=== PATIENT | male | born 1985 | race Caucasian/White ===

== ENCOUNTER 2019-12-03 11:56 | Emergency (ER) | payer OTHER ==
[~2019-12-03] VITALS: Ht 175.3 cm; Wt 72.6 kg
[2019-12-03 12:04] VITALS: BP 136/94
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
[2019-12-03] MEDS ORDERED: KETOROLAC 30 MG/ML VIAL IM ONE (12:55)
--- NOTE | 2019-12-03 13:02 | NUR ---
PT TAKEN TO RAD VIA WHEELCHAIR
[2019-12-03 13:20] LABS: BASOPHILS % (AUTO) 0.4 % (0.0-2.0); EOSINOPHILS % (AUTO) 0.4 % (0.0-4.0); HEMATOCRIT 47.8 % (36-52); HEMOGLOBIN 16.1 g/dL (12.0-18.0); LYMPHOCYTES # (AUTO) 0.9 K/uL (2.0-11.5); MEAN CORPUSCULAR HEMOGLOBIN 32 pg (27-31); MEAN CORPUSCULAR HGB CONC 34 g/dL (33-37); MEAN CORPUSCULAR VOLUME 95.2 fL (80-94); MONOCYTES # (AUTO) 0.7 K/uL (0.8-1.0); MONOCYTES % (AUTO) 6.1 % (1.7-9.3); NEUTROPHILS # (AUTO) 9.9 K/uL (1.8-7.7); NEUTROPHILS % (AUTO) 85.1 % (42.2-75.2); PLATELET COUNT (AUTO) 234 K/uL (140-450); RED BLOOD CELL COUNT(AUTO) 5.02 MIL/uL (4.20-6.10); RED CELL DISTRIBUTION WIDTH 13.8 % (11.6-13.7); WHITE BLOOD COUNT (AUTO) 11.6 K/uL (4.8-10.8)
[2019-12-03 13:34] LABS: PROTHROMBIN TIME 9.6 secs (10.8-13.4)
[2019-12-03 13:37] LABS: ANION GAP 10.7 (8-16); CARBON DIOXIDE 30.8 mmol/L (21-32); CREATININE 0.9 mg/dL (0.6-1.3); POTASSIUM 3.5 mmol/L (3.5-5.1); TOTAL BILIRUBIN 0.5 mg/dL (0.0-1.0)
--- NOTE | 2019-12-03 13:51 | NUR ---
PT TAKEN TO CT VIA ROBIN
[2019-12-03 14:53] VITALS: BP 132/88
== END 2019-12-03 14:53 | disposition home or self-care (01) ==
LOC: MED 11:56
DX: S70.01XA Contusion of right hip, initial encounter (principal); R10.10 Upper abdominal pain, unspecified; V89.2XXA Person injured in unspecified motor-vehicle accident, traffic, initial encounter; Y93.89 Activity, other specified; Y92.89 Other specified places as the place of occurrence of the external cause; Y99.8 Other external cause status
CPT/HCPCS: 36415; 71045; 74177; 80053; 85025; 85610; 85730; 96372; 99285; J1885; Q9967